=== PATIENT | male | born 1970 | race Two or more races ===

== ENCOUNTER 2019-02-05 10:04 | Emergency (ER) | payer MEDICAID ==
[~2019-02-05] VITALS: Ht 165.1 cm; Wt 72.6 kg
[2019-02-05] MEDS ORDERED: SODIUM CHLORIDE 0.9% 1,000 ML IV ONE ×2 (10:50)
[2019-02-05 10:51] LABS: Urine Bacteria FEW /hpf (None Seen); Urine Blood TRACE /uL (Negative); Urine Specific Gravity 1.012 (1.001-1.035); Urine WBC 61 /hpf (0 - 3)
[2019-02-05] MEDS ORDERED: cefTRIAXone 1GM/50ML D5W 50 ML IV ONE (11:00)
[2019-02-05 11:08] LABS: Basophils # (auto) 0.2 uL; Basophils % (auto) 1.4 % (0.0-2.0); Eosinophils # (auto) 0.1 uL; Eosinophils % (auto) 0.3 % (0.0-7.0); Hematocrit 48.9 % (41.0-53.0); Hemoglobin 17.1 g/dL (13.5-17.5); Lymphocytes # (auto) 1.5 uL; Lymphocytes % (auto) 8.9 % (10.0-50.0); Mean Corpuscular Hemoglobin 29.6 pg (28.0-32.0); Mean Corpuscular Hgb Conc. 34.9 g/dL (32.0-36.0); Mean Corpuscular Volume 84.9 fL (80.0-100.0); Monocytes % (auto) 6.3 % (0.0-12.0); Neutrophils # (auto) 13.5 uL; Neutrophils % (auto) 83.1 % (37.0-80.0); Nucleated Red Blood Cells % 0.4 %; Platelet Count (auto) 217 10^3/uL (140-450); Red Blood Cells 5.76 10^6/uL (4.5-5.90); Red Cell Distribution Width 13.4 % (11.8-14.3); White Blood Cell 16.3 10^3/uL (4.4-10.8)
[2019-02-05 11:29] LABS: Albumin 4.1 g/dL (3.4-5.0); Calcium 9.4 mg/dL (8.5-10.1); Potassium 4.6 mmol/L (3.5-5.1)
[2019-02-05 11:32] LABS: BUN/Creatinine Ratio 10.5; Bilirubin, Total 1.2 mg/dL (0.2-1.0); Total Protein 8.6 g/dL (6.4-8.2)
[2019-02-05 16:00] VITALS: BP 107/67
== END 2019-02-05 16:39 | disposition home or self-care (01) ==
LOC: ER 10:04
DX: N20.0 Calculus of kidney (principal); N39.0 Urinary tract infection, site not specified; E86.0 Dehydration; Z88.8 Allergy status to other drugs, medicaments and biological substances
CPT/HCPCS: 36415; 74176; 80053; 81001; 85025; 96365; 99284; J0696; J7030

== ENCOUNTER 2019-02-08 18:43 | Emergency (ER) | payer MEDICAID ==
[~2019-02-08] VITALS: Ht 167.6 cm; Wt 68.9 kg
[2019-02-09 01:01] LABS: Urine WBC None Seen /hpf (0 - 3)
[2019-02-09 01:08] LABS: Urine Bacteria NONE SEEN /hpf (None Seen); Urine Blood Negative /uL (Negative); Urine Hyaline Cast FEW /lpf (0 - 2)
[2019-02-09 03:04] VITALS: BP 110/80
== END 2019-02-09 04:03 | disposition home or self-care (01) ==
LOC: ER 18:45
DX: N45.1 Epididymitis (principal); N43.3 Hydrocele, unspecified; Z87.440 Personal history of urinary (tract) infections
CPT/HCPCS: 76870; 81001